=== PATIENT | female | born 1975 | race Two or more races ===

== ENCOUNTER 2024-02-15 08:02 | Emergency (ER) | payer MEDICAID ==
[~2024-02-15] VITALS: Ht 170.2 cm; Wt 91.0 kg
[2024-02-15 08:15] VITALS: BP 150/96; PULSE 102; RESP 19; TEMP 98; O2SAT 99
[2024-02-15 13:16] LABS: CLARITY URINE CLEAR (CLEAR); COLOR URINE YELLOW (YELLOW); GLUCOSE URINE NEGATIVE (NEGATIVE); KETONES URINE 1+ (NEGATIVE); LEUKOCYTE ESTERASE URINE 1+ (NEGATIVE); NITRITE URINE NEGATIVE (NEGATIVE); OCCULT BLOOD URINE 1+ (NEGATIVE); PH URINE 5.5 (4.5-8.0); PROTEIN URINE NEGATIVE (NEGATIVE); SPECIFIC GRAVITY URINE 1.022 (1.005-1.030); UROBILINOGEN URINE 0.2 E.U./dL (0.2-1.0)
[2024-02-15] MEDS ORDERED: NITR-87 MT (13:18)
[2024-02-15 13:59] LABS: BACTERIA URINE TRACE; RBC URINE 0-2 /hpf (0-2); TRICHOMONAS URINE FEW; WBC URINE 0-2 /hpf (0-2)
[2024-02-15 14:00] LABS: SQUAMOUS EPITHELIAL CELL URINE 1+ /lpf (RARE/1+)
== END 2024-02-15 13:30 | disposition home or self-care (01) ==
LOC: ER 08:02
DX: R30.0 Dysuria (principal); Z98.890 Other specified postprocedural states; Z00.00 Encounter for general adult medical examination without abnormal findings; Z59.00 Homelessness unspecified
CPT/HCPCS: 73090; 81003; 81025; 99284